=== PATIENT | male | born 1995 | race Caucasian/White ===

== ENCOUNTER 2018-04-18 07:11 | Emergency (ER) | payer BC ==
[~2018-04-18] VITALS: Ht 190.5 cm; Wt 161.0 kg
[2018-04-18 07:18] VITALS: TEMP 36.5; Ht 190.5 cm; Wt 161.0 kg
--- NOTE | 2018-04-18 08:23 | DIAGNOSTIC IMAGING REPORT ---
ABDOMEN 2VIEW W/PA CHEST RTN CLINICAL HISTORY: lower abdominal pain COMPARISON STUDY: No previous studies for comparison. FINDINGS: The erect chest reveals no evidence of free air. There is no evidence of focal pulmonary consolidation.] Erect and supine views of the abdomen reveal no abnormally dilated loops of large or small bowel. There are no transition zone to indicate bowel obstruction. There are nonspecific tangential left pelvic basin calcifications. Please correlate with any symptoms of renal colic. There is a minor scoliosis. IMPRESSION: 1. Nonspecific left pelvic basin calcifications 2. No evidence of bowel obstruction. No evidence of free air. Electronically signed by: Alan Suarez M.D. 04/18/2018 8:22 AM Dictated Date/Time: 04/18/2018 8:20 AM
[2018-04-18 09:54] VITALS: BP 129/78; PULSE 73; O2SAT 95
--- NOTE | 2018-04-18 16:52 | EMERGENCY ROOM VISIT NOTE ---
History First contact with patient: 07:23 Chief Complaint: ABDOMINAL PAIN Stated Complaint: ABD PAIN,FOR LAST 3 DAYS Nursing Triage Summary: pt here with lower abd pains x 4 days. denies nausea. denies diarrhea or constipation History of Present Illness The patient is a 22 year old white male who presents to the Emergency Room with complaints of a four-day history of intermittent low abdominal pain that seems to be worse with meals. He denies any upper pain. No nausea or vomiting. No diarrhea. He states he was constipated earlier in the week but took a stool softener and has moved his bowels. Pain continues intermittently. No prior history of abdominal surgery. No trauma. There is currently no pain. He denies any urinary symptoms. No other treatment. No other complaints. Review of Systems REVIEW OF SYSTEM: HEENT: No dizziness, visual problems, hearing loss, or tinnitus. There is no difficulty swallowing and no oral lesions are present. PULMONARY: No cough, shortness of breath, sputum production or hemoptysis. CARDIOVASCULAR: No chest pain, palpitations, shortness of breath or peripheral edema. GASTROINTESTINAL: No diarrhea, constipation, nausea, vomiting. GENITOURINARY: No dysuria, frequency, urgency or nocturia. NEUROLOGIC: No weakness, muscle tenderness, epilepsy or history of neurological problems. No history of chronic headaches. MUSCULOSKELETAL: No history of joint tenderness/swelling. No history of arthritis or arthralgias. SKIN: No rashes or lesions. PSYCHIATRIC: No history of depression or mental illness. ENDOCRINE: No history of diabetes, thyroid disorders, or abnormal hair growth. Past Medical/Surgical History Previous surgeries: None. History: Significant for recent upper respiratory infection, otherwise unremarkable. Family History Significant for cancer. Parents are living. Social History Smoking Status: Never Smoker Smokeless Tobacco Use: No Alcohol Use: occasionally Drug Use: none Marital Status: single Housing Status: lives with roommate Occupation Status: [employer] student Current/Historical Medications No Active Prescriptions or Reported Meds Allergies Coded Allergies: No Known Allergies (Unverified , 04/18/18) Physical Exam Vital Signs Date Time Temp Pulse Resp B/P (MAP) Pulse Ox O2 Delivery O2 Flow Rate FiO2 04/18/18 09:54 73 20 129/78 95 04/18/18 07:18 36.5 85 16 156/100 98 Room Air Physical Exam General: Well-developed, well-nourished, young white male, in no acute distress. Laying on the bed. Alert and oriented. Skin: Warm and dry with good turgor. No rashes or lesions. No ecchymosis or erythema. The patient is not diaphoretic. No abrasions. Heart: Heart RRR. No MGR. Peripheral pulses are 2+. Lungs: Lungs are clear to auscultation. No crackles rhonchi or wheezing. Good air movement. The patient is able to take a deep breath. Abdomen: Abdomen was inspected, auscultated, and palpated. Obese. Bowel sounds present x 4 but infrequent. Soft, nontender to palpation. No hepato- splenomegaly. No masses noted. No rebound, negative Denise sign. No pain over McBurney's point. No CVA tenderness. I cannot re-create his pain with palpation. Musculoskeletal: Gross motor function is intact to the lower extremities. He is able to perform straight leg raise bilaterally. Medical Decision & Procedures ER Provider Diagnostic Interpretation: Acute abdominal x-ray series obtained today was read by radiology as unremarkable. No evidence for perforation, free air, obstruction, or severe constipation. Laboratory Results Test 04/18/18 07:30 Urine Color DK YELLOW Urine Appearance CLEAR (CLEAR) Urine pH 5.0 (4.5-7.5) Urine Specific [place] 1.030 (1.000-1.030) Urine Protein NEG (NEG) Urine Glucose (UA) NEG (NEG) Urine Ketones NEG (NEG) Urine Occult Blood NEG (NEG) Urine Nitrite NEG (NEG) Urine Bilirubin NEG (NEG) Urine Urobilinogen NEG (NEG) Urine Leukocyte Esterase NEG (NEG) UA obtained today is entirely unremarkable. ED Course Patient was educated regarding today's findings. Conservative care measures were discussed. I am not sure what to make of his intermittent symptoms. He has no symptoms now and I cannot re-create them. Acute abdominal x-ray series is normal. UA is normal. He has no UTI symptoms. He has no findings to suggest colitis, cystitis, appendicitis, or cholecystitis. No evidence of diverticulitis. I cannot make him hurt. He should follow-up with [facility] or return to the ED when his abdominal pain is present. Possibility of diet associated pain was discussed. He will try various diets including lactose-free, gluten-free, and increasing and decreasing his vegetable intake. Medical Decision Possibility of colitis, diverticulitis, gastroenteritis, appendicitis, cholecystitis, renal stones, abdominal strain, constipation, and diet associated pain were considered and discussed. Impression Primary Impression: Abdominal pain of unknown cause Departure Information Prescriptions No Active Prescriptions or Reported Meds Referrals No Doctor, Assigned (PCP) Patient Instructions My [facility]
== END 2018-04-18 09:46 | disposition home or self-care (01) ==
LOC: C.EDB 07:12 → C.EDA 09:46
DX: R10.30 Lower abdominal pain, unspecified (principal)